=== PATIENT | female | born 1995 | race African-American/Black ===

== ENCOUNTER 2019-05-11 05:13 | Emergency (ER) | payer SELFPAY ==
[~2019-05-11] VITALS: Ht 154.9 cm; Wt 112.3 kg
[2019-05-11 05:36] VITALS: BP 140/76; TEMP 99.1
[2019-05-11 07:55] VITALS: PULSE 112
== END 2019-05-11 07:55 | disposition home or self-care (01) ==
LOC: COL.ER 05:13
DX: S96.912A Strain of unspecified muscle and tendon at ankle and foot level, left foot, initial encounter (principal); F41.9 Anxiety disorder, unspecified; F32.9 Major depressive disorder, single episode, unspecified; I10 Essential (primary) hypertension; W19.XXXA Unspecified fall, initial encounter; X50.1XXA Overexertion from prolonged static or awkward postures, initial encounter; Y92.009 Unspecified place in unspecified non-institutional (private) residence as the place of occurrence of the external cause